=== PATIENT | female | born 1955 | race American Indian/Alaskan Native ===

== ENCOUNTER 2021-02-14 11:42 | Day surgery (SDC) | payer MEDICARE ==
[~2021-02-14 11:42] MED LIST: HEPARIN 10,000 UNITS/10 ML VIAL ONE; PROTAMINE SULFATE 50 MG/5 ML INJ ONE; SODIUM CHLORIDE 0.9% 250ML 250 ML ONE; THROMBIN (RECOMBINANT) 5,000 UNIT VIAL TP ONE
[2021-02-14] MEDS ORDERED: SODIUM CHLORIDE 0.9% 1000 ML 1,000 ML ONE (12:08)
[2021-02-14] MEDS ORDERED: SODIUM CHLORIDE 0.9% 1000 ML 1,000 ML IV SCH (14:00)
[2021-02-14] MEDS ORDERED: ceFAZolin/Water 2 GM/20 ML 2 GM/20 ML SYRINGE IV ONE (14:09)
[2021-02-14 14:10] LABS: Calcium 9.7 mg/dL (8.4-10.2)
[2021-02-14] MEDS ORDERED: propofoL 200 MG/20 ML VIAL IV ONE (14:21)
[2021-02-14] MEDS ORDERED: LIDOCAINE MPF (2%) 20 MG/1 ML VIAL 5 ML ONE (14:21)
[2021-02-14] MEDS ORDERED: fentaNYL 100 MCG/2 ML INJ ONE (14:21)
[2021-02-14] MEDS ORDERED: HEPARIN 5,000 UNIT/1 ML VIAL ONE (14:56)
[2021-02-14] MEDS ORDERED: ceFAZolin/STERILE WATER 2 GM/20 ML SYRINGE IV NR (15:00)
[2021-02-14] MEDS ORDERED: HEPARIN 10,000 UNIT/1 ML VIAL IV PRN (15:01)
--- NOTE | 2021-02-14 15:03 | Progress Note ---
Subjective Date of service: 02/14/21 Interval history: Right Arm AV Graft cancelled due to patient taking eliquis yesterday. Patient will be rescheduled at a later date. Objective - Constitutional Vitals: Vital Signs - 12hr 02/14/21 02/14/21 12:05 12:40 Temperature 98.6 F 98.6 F Pulse Rate 70 70 Respiratory 20 20 Rate Blood Pressure 165/100 165/100 O2 Sat by Pulse 99 99 Oximetry - Labs CBC & Chem 7: 02/14/21 12:35 Labs: Abnormal lab results 02/14/21 02/14/21 Range/Units 12:35 12:40 Potassium 3.5 L (3.6-5.0) mmol/L Chloride 95.7 L (98-107) mmol/L BUN 19 H (7-17) mg/dL Creatinine 7.6 H (0.6-1.2) mg/dL Glucose 203 H (65-100) mg/dL POC Glucose 179 H (70-105) mg/dL Medications & Allergies - Medications Allergies/Adverse Reactions: Allergies No Known Allergies Allergy (Verified 02/11/21 10:55) Home Medications: Home Medications Medication Instructions Recorded Confirmed Last Taken Type Apixaban [Eliquis] 2.5 mg PO BID 02/03/21 02/14/21 02/13/21 17:00 History AtorvaSTATin [Lipitor] 40 mg PO QHS 02/03/21 02/14/21 02/13/21 20:00 History calcitrioL [Rocaltrol] 0.5 mcg PO QDAY 02/03/21 02/03/21 Unknown History Clopidogrel [Plavix] 75 mg PO QDAY 02/11/21 02/14/21 02/13/21 09:00 History Insulin Glargine,Hum.rec.anlog 5 unit SQ HS 02/11/21 02/14/21 02/13/21 20:00 History [Lantus Solostar] Digoxin 0.125 mg PO DAILY 02/14/21 02/14/21 02/13/21 09:00 History Ferrous Sulfate 325 mg PO DAILY 02/14/21 02/14/21 02/13/21 09:00 History Gentamicin 0.1% Top Oint (Nf) 1 unit TRANSDERMA DAILY 02/14/21 02/14/21 02/13/21 09:00 History Hydrocort Buty 0.1% Lipo Cream 1 unit TRANSDERMA BID 02/14/21 02/14/21 02/13/21 17:00 History ISOSORBIDE MONOnitrate 30 mg PO DAILY 02/14/21 02/14/21 02/13/21 09:00 History Insulin Lispro 1 - 2 units SUB-Q QID 02/14/21 02/14/21 02/13/21 19:00 History Metoprolol Succinate 100 mg PO DAILY 02/14/21 02/14/21 02/14/21 08:00 History Midodrine 10 ng PO DAILY 02/14/21 02/14/21 02/13/21 07:00 History Pantoprazole 40 mg PO BID 02/14/21 02/14/21 02/13/21 17:00 History Ranexa 500 mg PO DAILY 02/14/21 02/14/21 02/13/21 09:00 History Sucralfate 1 tab PO QID 02/14/21 02/14/21 02/13/21 19:00 History Tradjenta 5 mg PO DAILY 02/14/21 02/14/21 02/13/21 09:00 History rOPINIRole 0.25 mg PO BID 02/14/21 02/14/21 02/13/21 17:00 History Active Medications: Generic Name Dose Route Start Last Admin Trade Name Freq PRN Reason Stop Dose Admin Cefazolin Sodium 2 gm 02/14/21 15:00 Cefazolin/Sterile Water 2 Gm/20 Ml Syringe IV 02/15/21 14:59 PREOP NR Sodium Chloride 1,000 mls @ 42 mls/hr 02/14/21 14:00 02/14/21 11:50 Nacl 0.9% 1000 Ml IV 42 mls/hr DIRECT RAMA Administration
[2021-02-14 15:07] LABS: Hematocrit 30.8 % (30.3-42.9); Mean Corpuscular HGB Conc 32 % (30-34); Mean Corpuscular Volume 95 fl (79-97); Platelet Count 248 K/mm3 (140-440); Red Blood Count 3.25 M/mm3 (3.65-5.03); Red Cell Distribution Width 19.7 % (13.2-15.2)
[2021-02-14 15:29] VITALS: BP 164/98
== END 2021-02-14 11:43 | disposition home or self-care (01) ==
LOC: OR 11:42
PROVIDERS: ATTEND Surgery Vascular Surgery
DX: I13.2 Hypertensive heart and chronic kidney disease with heart failure and with stage 5 chronic kidney disease, or end stage renal disease (principal); I50.9 Heart failure, unspecified; N18.6 End stage renal disease; Z53.8 Procedure and treatment not carried out for other reasons; E78.00 Pure hypercholesterolemia, unspecified; I48.91 Unspecified atrial fibrillation; I25.10 Atherosclerotic heart disease of native coronary artery without angina pectoris; Z99.2 Dependence on renal dialysis; Z79.899 Other long term (current) drug therapy; Z98.890 Other specified postprocedural states; Z79.4 Long term (current) use of insulin; Z20.822 Contact with and (suspected) exposure to COVID-19
CPT/HCPCS: 36415; 80048; 82962; 85027; J1644; J2704; J3010; J7030; J7050; U0003; J0690; J2720

== ENCOUNTER 2021-02-27 07:43 | Emergency (ER) | payer MEDICARE ==
--- NOTE | 2021-02-27 07:59 | Emergency Department Report ---
ED General Adult HPI - General Chief complaint: Rectal Pain Stated complaint: CONSTIPATION Time Seen by Provider: 02/27/21 07:47 Source: patient, EMS Mode of arrival: Stretcher Limitations: No Limitations - History of Present Illness Initial comments: Ms. Marquez is a 65-year-old female, intermediate patient. Patient had history of hypertension and congestive heart failure. Patient had hernia repair approximately 5 days ago at [facility]. Patient still have a wound VAC in place. Patient brought to the emergency room via EMS for evaluation of possible constipation. Patient stated that she was passing gas and feel like her diaper is full and when she asked the nursing staff they looked and said there is nothing in the diaper. Patient was sent for evaluation of constipation. Patient stated that as soon as up with her in the EMS she had a bowel movement. Upon arrival to the ER patient diaper is full with the stool. Patient currently denying any abdominal pain, nausea or vomiting. She also denied any fever or chills. No chest pain or shortness of breath. - Related Data Home Medications Medication Instructions Recorded Confirmed Last Taken Apixaban [Eliquis] 2.5 mg PO BID 02/03/21 02/14/21 02/13/21 17:00 AtorvaSTATin [Lipitor] 40 mg PO QHS 02/03/21 02/14/21 02/13/21 20:00 calcitrioL [Rocaltrol] 0.5 mcg PO QDAY 02/03/21 02/03/21 Unknown Clopidogrel [Plavix] 75 mg PO QDAY 02/11/21 02/14/21 02/13/21 09:00 Insulin Glargine,Hum.rec.anlog 5 unit SQ HS 02/11/21 02/14/21 02/13/21 20:00 [Lantus Solostar] Digoxin 0.125 mg PO DAILY 02/14/21 02/14/21 02/13/21 09:00 Ferrous Sulfate 325 mg PO DAILY 02/14/21 02/14/21 02/13/21 09:00 Gentamicin 0.1% Top Oint (Nf) 1 unit TRANSDERMA DAILY 02/14/21 02/14/21 02/13/21 09:00 Hydrocort Buty 0.1% Lipo Cream 1 unit TRANSDERMA BID 02/14/21 02/14/21 02/13/21 17:00 ISOSORBIDE MONOnitrate 30 mg PO DAILY 02/14/21 02/14/21 02/13/21 09:00 Insulin Lispro 1 - 2 units SUB-Q QID 02/14/21 02/14/21 02/13/21 19:00 Metoprolol Succinate 100 mg PO DAILY 02/14/21 02/14/21 02/14/21 08:00 Midodrine 10 ng PO DAILY 02/14/21 02/14/21 02/13/21 07:00 Pantoprazole 40 mg PO BID 02/14/21 02/14/21 02/13/21 17:00 Ranexa 500 mg PO DAILY 02/14/21 02/14/21 02/13/21 09:00 Sucralfate 1 tab PO QID 02/14/21 02/14/21 02/13/21 19:00 Tradjenta 5 mg PO DAILY 02/14/21 02/14/21 02/13/21 09:00 rOPINIRole 0.25 mg PO BID 02/14/21 02/14/21 02/13/21 17:00 Previous Rx's Medication Instructions Recorded Last Taken Type Docusate Sodium [Colace] 100 mg PO BID PRN #60 capsule 02/27/21 Unknown Rx Sodium Phosphate,Fleming-Dibasic 118 ml RC ONCE #1 enema 02/27/21 Unknown Rx [Fleet Enema] Allergies Allergy/AdvReac Type Severity Reaction Status Date / Time No Known Allergies Allergy Verified 02/11/21 10:55 ED Review of Systems ROS: Stated complaint: CONSTIPATION Other details as noted in HPI Comment: All other systems reviewed and negative Constitutional: denies: chills, fever Respiratory: denies: cough, shortness of breath Cardiovascular: denies: chest pain Gastrointestinal: constipation. denies: abdominal pain, nausea, vomiting, diarrhea, hematemesis, melena, hematochezia ED Past Medical Hx - Past Medical History Previous Medical History?: Yes Hx Hypertension: Yes Hx Congestive Heart Failure: Yes Hx Diabetes: Yes Hx Pulmonary Embolism: Yes (HX OF BLOOD CLOT IN LUNG) Hx HIV: No - Surgical History Past Surgical History?: Yes Hx Coronary Stent: Yes Hx Open Heart Surgery: No - Social History Smoking Status: Never Smoker - Medications Home Medications: Home Medications Medication Instructions Recorded Confirmed Last Taken Type Apixaban [Eliquis] 2.5 mg PO BID 02/03/21 02/14/21 02/13/21 17:00 History AtorvaSTATin [Lipitor] 40 mg PO QHS 02/03/21 02/14/21 02/13/21 20:00 History calcitrioL [Rocaltrol] 0.5 mcg PO QDAY 02/03/21 02/03/21 Unknown History Clopidogrel [Plavix] 75 mg PO QDAY 02/11/21 02/14/21 02/13/21 09:00 History Insulin Glargine,Hum.rec.anlog 5 unit SQ HS 02/11/21 02/14/21 02/13/21 20:00 History [Lantus Solostar] Digoxin 0.125 mg PO DAILY 02/14/21 02/14/21 02/13/21 09:00 History Ferrous Sulfate 325 mg PO DAILY 02/14/21 02/14/21 02/13/21 09:00 History Gentamicin 0.1% Top Oint (Nf) 1 unit TRANSDERMA DAILY 02/14/21 02/14/21 02/13/21 09:00 History Hydrocort Buty 0.1% Lipo Cream 1 unit TRANSDERMA BID 02/14/21 02/14/21 02/13/21 17:00 History ISOSORBIDE MONOnitrate 30 mg PO DAILY 02/14/21 02/14/21 02/13/21 09:00 History Insulin Lispro 1 - 2 units SUB-Q QID 02/14/21 02/14/21 02/13/21 19:00 History Metoprolol Succinate 100 mg PO DAILY 02/14/21 02/14/21 02/14/21 08:00 History Midodrine 10 ng PO DAILY 02/14/21 02/14/21 02/13/21 07:00 History Pantoprazole 40 mg PO BID 02/14/21 02/14/21 02/13/21 17:00 History Ranexa 500 mg PO DAILY 02/14/21 02/14/21 02/13/21 09:00 History Sucralfate 1 tab PO QID 02/14/21 02/14/21 02/13/21 19:00 History Tradjenta 5 mg PO DAILY 02/14/21 02/14/21 02/13/21 09:00 History rOPINIRole 0.25 mg PO BID 02/14/21 02/14/21 02/13/21 17:00 History Docusate Sodium [Colace] 100 mg PO BID PRN #60 capsule 02/27/21 Unknown Rx Sodium Phosphate,Fleming-Dibasic 118 ml RC ONCE #1 enema 02/27/21 Unknown Rx [Fleet Enema] ED Physical Exam - General Limitations: No Limitations General appearance: alert, in no apparent distress - Head Head exam: Present: atraumatic, normocephalic, normal inspection - Eye Eye exam: Present: normal appearance, PERRL - ENT ENT exam: Present: normal exam, normal orophraynx, mucous membranes moist - Neck Neck exam: Present: normal inspection, full ROM. Absent: tenderness, meningismus - Respiratory Respiratory exam: Present: normal lung sounds bilaterally - Cardiovascular Cardiovascular Exam: Present: regular rate, normal rhythm, normal heart sounds - GI/Abdominal GI/Abdominal exam: Present: soft, normal bowel sounds, other (Wound VAC in place.). Absent: distended, tenderness, guarding, rebound, rigid, mass, bruit, pulsatile mass, hernia - Extremities Exam Extremities exam: Present: normal inspection, full ROM - Back Exam Back exam: Present: normal inspection, full ROM. Absent: CVA tenderness (R), CVA tenderness (L) - Neurological Exam Neurological exam: Present: alert, oriented X3, CN II-XII intact - Psychiatric Psychiatric exam: Present: normal mood - Skin Skin exam: Present: warm, intact, normal color ED Course Vital Signs 02/27/21 02/27/21 07:55 08:06 Temperature 97.9 F Pulse Rate 83 Respiratory 16 Rate O2 Sat by Pulse 98 98 Oximetry ED Medical Decision Making - Lab Data Result diagrams: 02/27/21 09:10 02/27/21 09:10 - Radiology Data Radiology results: report reviewed - Medical Decision Making Ms. Marquez is a 65-year-old female, intermediate patient. Patient had history of hypertension and congestive heart failure. Patient had hernia repair approximately 5 days ago at [facility]. Patient still have a wound VAC in place. Patient brought to the emergency room via EMS for evaluation of possible constipation. Patient stated that she was passing gas and feel like her diaper is full and when she asked the nursing staff they looked and said there is nothing in the diaper. Patient was sent for evaluation of constipation. Patient stated that as soon as up with her in the EMS she had a bowel movement. Upon arrival to the ER patient diaper is full with the stool. Patient currently denying any abdominal pain, nausea or vomiting. She also denied any fever or chills. No chest pain or shortness of breath. Patient remained stable in the ER with a stable vital sign. Labs reviewed and is unremarkable except for leukocytosis and her chronic kidney disease. CT abdomen and pelvis showed constipation. Also possible colitis. Patient given a prescription for Fleet enema and Colace and ciprofloxacin. Patient advised to follow-up with her primary care physician and surgeon in the next 2 to 3 days and to return to the ER if she develop any new symptoms. Critical care attestation.: If time is entered above; I have spent that time in minutes in the direct care o f this critically ill patient, excluding procedure time. ED Disposition Clinical Impression: Constipation, Colitis Disposition: 01 HOME / SELF CARE / HOMELESS Is pt being admited?: No Condition: Stable Instructions: Constipation, Adult, Colitis Prescriptions: Docusate Sodium [Colace] 100 mg PO BID PRN #60 capsule PRN Reason: Constipation Sodium Phosphate,Fleming-Dibasic [Fleet Enema] 118 ml RC ONCE #1 enema Referrals: PRIMARY CARE, [Primary Care Provider] - 3-5 Days
--- NOTE | 2021-02-27 09:07 | XRay Report ---
ABDOMEN 3 VIEW(S) INDICATION / CLINICAL INFORMATION: Abdominal pain. COMPARISON: None available. FINDINGS: TUBES / LINES: None. BOWEL GAS PATTERN: There is a [id number] amount of stool throughout the colon. There is no evid ence of bowel obstruction or mass effect. FREE AIR / EXTRALUMINAL GAS: None seen. ADDITIONAL FINDINGS: There are atherosclerotic calcifications involving the splenic and iliac arterie s without visible aneurysm. Several phleboliths are present in the lower pelvis bilaterally. There is moderate spondylosis. CHEST: There is a right jugular Vas-Cath with the tip overlying the upper cavoatrial junction. The he art size is normal and the lungs are clear. IMPRESSION: No acute abnormality is identified. Signer Name: Roland Prado MD Signed: 02/27/2021 9:02 AM Workstation Name: [id number]
[2021-02-27 09:49] LABS: Basophils # (Auto) 0.1 K/mm3 (0.0-0.1); Eosinophils # (Auto) 0.1 K/mm3 (0.0-0.4); Hematocrit 24.7 % (30.3-42.9); Hemoglobin 7.4 gm/dl (10.1-14.3); Lymphocytes # (Auto) 0.7 K/mm3 (1.2-5.4); Lymphocytes % (Auto) 5.2 % (13.4-35.0); Mean Corpuscular HGB Conc 30 % (30-34); Mean Corpuscular Volume 94 fl (79-97); Monocytes # (Auto) 1.8 K/mm3 (0.0-0.8); Monocytes % (Auto) 13.2 % (0.0-7.3); Platelet Count 379 K/mm3 (140-440); Red Blood Count 2.62 M/mm3 (3.65-5.03); Red Cell Distribution Width 19.6 % (13.2-15.2)
[2021-02-27 09:57] LABS: Calcium 9.1 mg/dL (8.4-10.2)
--- NOTE | 2021-02-27 11:32 | Cat Scan Report ---
CT OF THE ABDOMEN AND PELVIS WITHOUT CONTRAST INDICATION / CLINICAL INFORMATION: Abdominal pain. TECHNIQUE: All CT scans at this location are performed using CT dose reduction for ALARA by means of automated exposure control. COMPARISON: None available. FINDINGS: ABDOMEN: There are moderately severe atherosclerotic calcifications without aneurysm. There are few s mall calcified granulomata in the spleen. Mild increased density of the gallbladder may be related to vicarious excretion of contrast. The liver, bile ducts, pancreas and left kidney are normal. There i s a 1.5 cm simple cyst-appearing lesion in the mid to upper right kidney. There is mild benign-appear ing low density hyperplasia of the left adrenal gland. The right adrenal gland is normal. There is no evidence of bowel obstruction, wall thickening or free air. No adenopathy is present. The lung bases are clear. PELVIS: There is a moderate amount of high density stool in a mildly distended rectum. Mild presacral edema is present. No definite associated bowel wall thickening is identified. There is contrast in the urinary bladder. The distal ureters are normal. The uterus is surgically abs ent. There is no evidence of adnexal mass or free fluid. A normal appendix is present and there is no evidence of diverticulitis. There is postsurgical change/scarring in the right periumbilical fat. Th ere is a tiny fat-containing periumbilical hernia. A few bubbles of gas in this region may be related to recent surgery. No drainable fluid collection is present. There is mild to moderate spondylosis. IMPRESSION: 1. Moderate amount of stool in a distended rectum may be related to fecal impaction. Mild presacral e spencer is nonspecific but could be related to stercoral colitis. 2. Postsurgical changes in the periumbilical region. Signer Name: Roland Prado MD Signed: 02/27/2021 11:28 AM Workstation Name: [id number]
[2021-02-27 18:31] VITALS: BP 132/66
== END 2021-02-27 18:31 | disposition home or self-care (01) ==
LOC: ED 07:43
DX: K59.00 Constipation, unspecified (principal); K52.9 Noninfective gastroenteritis and colitis, unspecified; I11.0 Hypertensive heart disease with heart failure; I50.9 Heart failure, unspecified; E11.9 Type 2 diabetes mellitus without complications; Z79.01 Long term (current) use of anticoagulants; Z79.899 Other long term (current) drug therapy; Z79.4 Long term (current) use of insulin
CPT/HCPCS: 36415; 74022; 74176; 80048; 85025; 99285

== ENCOUNTER 2021-05-18 09:58 | Day surgery (SDC) | payer MEDICARE ==
[~2021-05-18 09:58] MED LIST changes: -PROTAMINE SULFATE 50 MG/5 ML INJ ONE
[2021-05-18] MEDS ORDERED: SODIUM CHLORIDE 0.9% 1000 ML 1,000 ML ONE (10:38)
[2021-05-18] MEDS ORDERED: INSULIN LISPRO 100 UNIT/ML SUB-Q NR ×2 (11:21→12:00)
[2021-05-18] MEDS ORDERED: HYDROmorphone 1 MG/1 ML INJ IV PRN ×2 (11:23)
--- NOTE | 2021-05-18 11:24 | Anesthesia Day of Surgery ---
Anesthesia Day of Surgery - Day of Surgery Patient Examined: Yes Patient H&P Reviewed: Yes Patient is NPO: Yes Beta Blockers: Yes
--- NOTE | 2021-05-18 11:28 | Anesthesia Consultation ---
Anesthesia Consult and Med Hx Date of service: 05/18/21 - Airway Anesthetic Teeth Evaluation: Caps (Missing) ROM Head & Neck: Adequate Mental/Hyoid Distance: Adequate Mallampati Class: Class II Intubation Access Assessment: Good - Pre-Operative Health Status ASA Pre-Surgery Classification: ASA4 Proposed Anesthetic Plan: General (Patient request) - Pulmonary Hx Smoking: No - Cardiovascular System Hx Hypertension: Yes (Dx 8 YEARS AGO) Hx Coronary Artery Disease: Yes (CHF) Hx Percutaneous Transluminal Coronary Angioplasty (PTCA): Yes (Stent 6 months ago) Hx Cardia Arrhythmia: Yes - Central Nervous System CVA: Yes (1 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
[2021-05-18] MEDS ORDERED: ONDANSETRON 4 MG/2 ML INJ IV PRN (11:30)
[2021-05-18] MEDS ORDERED: SODIUM CHLORIDE 0.9% 1000 ML 1,000 ML IV SCH (11:30)
[2021-05-18] MEDS ORDERED: PROTAMINE SULFATE 50 MG/5 ML INJ ONE (11:36)
[2021-05-18 11:42] LABS: Hematocrit 37.5 % (30.3-42.9); Hemoglobin 11.7 gm/dl (10.1-14.3)
[2021-05-18] MEDS ORDERED: ceFAZolin/Water 2 GM/20 ML 2 GM/20 ML SYRINGE IV ONE ×2 (11:59→12:00)
[2021-05-18] MEDS ORDERED: METOPROLOL SUCCINATE XL 100 MG TAB PO SCH (12:00)
[2021-05-18] MEDS ORDERED: LIDOCAINE MPF (2%) 20 MG/1 ML VIAL 5 ML ONE (12:08)
[2021-05-18] MEDS ORDERED: propofoL 200 MG/20 ML VIAL IV ONE (12:09)
[2021-05-18] MEDS ORDERED: fentaNYL 100 MCG/2 ML INJ ONE (12:09)
[2021-05-18] MEDS ORDERED: ONDANSETRON 4 MG/2 ML INJ ONE (12:11)
[2021-05-18] MEDS ORDERED: HEPARIN 10,000 UNITS/10 ML VIAL IR ONE (13:34)
[2021-05-18] MEDS ORDERED: SODIUM CHLORIDE 0.9% 250 ML IVPB IR ONE ×2 (13:34→14:13)
[2021-05-18] MEDS ORDERED: SODIUM CHLORIDE 0.9% IRR 1,500 ML BOTTLE IR ONE ×2 (13:35)
[2021-05-18] MEDS ORDERED: rifAMPin 600 MG VIAL ONE (13:44)
[2021-05-18] MEDS ORDERED: SODIUM CHLORIDE 0.9% 250ML 250 ML ONE (13:44)
[2021-05-18] MEDS ORDERED: HYDROmorphone 1 MG/1 ML INJ ONE (14:07)
[2021-05-18] MEDS ORDERED: rifAMPin 600 MG VIAL IV ONE (14:14)
[2021-05-18] MEDS ORDERED: ePHEDrine SULFATE 50 MG/1 ML INJ ONE (14:28)
[2021-05-18] MEDS ORDERED: PROTAMINE SULFATE 50 MG/5 ML INJ IV ONE (15:09)
[2021-05-18] MEDS ORDERED: PHENYLEPHRINE/NS 1,000 MCG/10 ML SYRINGE (OR USE) IV ONE (15:23)
[2021-05-18] MEDS ORDERED: PHENYLEPHRINE 10 MG/1 ML INJ SDV ONE (15:23)
[2021-05-18] MEDS ORDERED: HEPARIN 10,000 UNITS/10 ML VIAL ONE (15:24)
--- NOTE | 2021-05-18 15:40 | Post Operative Note ---
Date of procedure: 05/18/21 Pre-op diagnosis: ESRD Post-op diagnosis: same Procedure: Right Arm AV Graft Insertion Anesthesia: GETA Surgeon: CLAY LOMELI Estimated blood loss: other (25ml) Pathology: none Condition: stable Disposition: PACU
[2021-05-18] MEDS ORDERED: oxyCODONE /ACETAMINOPHEN 5-325MG TAB PO PRN (15:42)
--- NOTE | 2021-05-18 15:42 | Short Stay Summary ---
Short Stay Documentation Date of service: 05/18/21 - History H&P: dictated Past Medical History: diabetes, ESRD, hypertension - Allergies and Medications Current Medications: Allergies morphine Adverse Reaction (Verified 05/18/21 11:19) Nausea Home Medications Medication Instructions Recorded Confirmed Last Taken Type Apixaban [Eliquis] 5 mg PO BID 02/03/21 05/12/21 02/13/21 17:00 History AtorvaSTATin [Lipitor] 40 mg PO QHS 02/03/21 05/12/21 02/13/21 20:00 History Ferrous Sulfate 325 mg PO DAILY 02/14/21 05/12/21 02/13/21 09:00 History ISOSORBIDE MONOnitrate 60 mg PO DAILY 02/14/21 05/12/21 02/13/21 09:00 History Metoprolol Succinate 100 mg PO BID 02/14/21 05/12/21 02/14/21 08:00 History Ranexa 500 mg PO DAILY 02/14/21 05/12/21 02/13/21 09:00 History rOPINIRole 0.25 mg PO BID PRN 02/14/21 05/12/21 02/13/21 17:00 History Calcium Acetate [Phoslo] 2,001 mg PO TID 05/12/21 05/12/21 Unknown History Ferric Citrate (Nf) [Auryxia] 210 mg PO TIDAC 05/12/21 05/12/21 Unknown History Gabapentin [Neurontin] 100 mg PO HS 05/12/21 05/12/21 Unknown History Insulin Lispro [Humalog] 1 unit SQ PRN PRN 05/12/21 05/12/21 Unknown History Nitroglycerin [Nitrostat] 0.4 mg SL Q5M PRN 05/12/21 05/12/21 Unknown History Active Medications Hydromorphone HCl (Hydromorphone 1 Mg/1 Ml Inj) 0.25 mg IV Q10MIN PRN PRN Reason: Pain, Moderate (4-6) Stop: 05/18/21 20:00 Hydromorphone HCl (Hydromorphone 1 Mg/1 Ml Inj) 0.5 mg IV Q10MIN PRN PRN Reason: Pain , Severe (7-10) Stop: 05/18/21 20:00 Sodium Chloride (Nacl 0.9% 1000 Ml) 1,000 mls @ 42 mls/hr IV DIRECT RAMA Metoprolol Succinate (Metoprolol Succinate Xl 100 Mg Tab) 100 mg PO QDAY RAMA - Physical exam General appearance: no acute distress Lungs: Normal air movement Heart: Regular rate Extremities: no ischemia - Hospital course Hospital course: the patient was taken to the operating room and had a right arm av graft insertion performed. please refer to the operative note concerning details of the procedure. the patient tolerated the procedure well and was discharged home in stable condition. - Disposition Condition at discharge: Stable Disposition: 01 HOME / SELF CARE / HOMELESS Short Stay Discharge Plan Follow up with: JOSE GARCÍA MD [Primary Care Provider] - 7 Days
[2021-05-18] MEDS ORDERED: HEPARIN 10,000 UNIT/1 ML VIAL IV PRN (15:45)
--- NOTE | 2021-05-18 16:30 | Operative Report ---
DATE OF SURGERY: 05/18/2021 STAFF SURGEON: Herrera Jaeger MD PREOPERATIVE DIAGNOSIS: End-stage renal disease. POSTOPERATIVE DIAGNOSIS: End-stage renal disease. PROCEDURE PERFORMED: Right arm AV graft insertion. COMPLICATIONS: None. ESTIMATED BLOOD LOSS: 25 mL. ANESTHESIA: General. INDICATIONS FOR PROCEDURE: This is a 65-year-old female with end-stage renal disease, on hemodialysis via right IJ PermCath, in need of upper extremity access. The patient had a failed right upper arm AV fistula creation and did not demonstrate any other suitable veins for a fistula creation. Therefore, the patient was slated to undergo AV graft insertion. The patient was explained the risks, benefits and alternatives of procedure, expressed understanding and wished to proceed. DESCRIPTION OF PROCEDURE: After the appropriate consent was obtained, the patient was brought back to the operating room and placed on the operating table in supine position with the right arm extended. The patient was given appropriate medication for general anesthesia, had LMA placed without difficulty. The right arm was prepped and draped in the usual sterile fashion with ChloraPrep. Appropriate preoperative antibiotics were administered. Appropriate timeout was performed indicating correct patient, procedure, and site of procedure. We then began the operation by making a longitudinal incision near the antecubital fossa. This was carried through the subcutaneous tissues with combination of blunt dissection and electrocautery. Dissection was continued through the bicep aponeurosis, which allowed us to expose the brachial artery. It was found to be suitable for arterial inflow and was mobilized for appropriate distance, both proximally and distally. We then proceeded to make a longitudinal incision near the axilla. This was carried through the subcutaneous tissues with combination of blunt dissection and electrocautery. We then continued our dissection through the subcutaneous tissues with combination of blunt dissection and electrocautery. Dissection was continued through the fascia overlying the axillary neurovascular bundle. Axillary vein was identified and found to be suitable for venous outflow. It was mobilized for appropriate distance, both proximally and distally. We then created a subcutaneous tunnel between the 2 incision sites, bringing through a 5 mm Artegraft. The patient was then given 5000 units of unfractionated heparin. After appropriate time had elapsed, we proceeded to place vascular clamps on the brachial artery, both proximally and distally. A longitudinal arteriotomy was made with 11 blade, extended with Butts scissors. End-to-side anastomosis was performed with a running 6-0 Prolene suture. Once complete, flow was established through the graft, had a nice pulsatile flow. We then cut the graft to appropriate length and spatulated. We then proceeded to place vascular clamps on the axillary vein, both proximally and distally. A longitudinal venotomy was made with an 11 blade, extended with Butts scissors. We then proceeded to perform an end-to-side anastomosis with a running 5-0 Prolene suture. Once complete, flow was established through the graft. We had a nice palpable thrill. We then looked to obtain hemostasis along our suture lines, was obtained with hemostatic agents. Once we were satisfied with hemostasis, we then proceeded to close both wounds with deep subcutaneous layer with interrupted 3-0 PDS. Skin was approximated with betty. Appropriate dressing was placed. The patient tolerated the procedure well, emerged from the general anesthesia, had LMA removed and was sent to recovery in stable condition. All sponge and needle counts were correct at completion of the operation. TID: [id number] RECEIPT: [id number] ROMEO/LEONARDO
[2021-05-18 17:14] VITALS: BP 112/73
--- NOTE | 2021-05-18 17:42 | Post Anesthesia Evaluation ---
- Post Anesthesia Evaluation Patient Participated: Yes Airway Patent: Yes Stable Respiratory Function: Yes Nausea/Vomiting: No Temp > 96.8F: Yes Pain Manageable: Yes Adequeate Hydration: Yes Anesthesia Complications: No Block Receding Appropriately: Not Applicable Patient on Ventilator: No
== END 2021-05-18 18:30 | disposition home or self-care (01) ==
LOC: OR 09:58
PROVIDERS: ATTEND Surgery Vascular Surgery
DX: I13.2 Hypertensive heart and chronic kidney disease with heart failure and with stage 5 chronic kidney disease, or end stage renal disease (principal); N18.6 End stage renal disease; I50.9 Heart failure, unspecified; Z99.2 Dependence on renal dialysis; Z20.822 Contact with and (suspected) exposure to COVID-19; K21.9 Gastro-esophageal reflux disease without esophagitis; E66.9 Obesity, unspecified; Z86.73 Personal history of transient ischemic attack (TIA), and cerebral infarction without residual deficits; Z79.899 Other long term (current) drug therapy; Z98.890 Other specified postprocedural states
CPT/HCPCS: 36415; 36830; 80048; 82962; 85014; 85018; C1768; J0690; J1170; J1644; J2370; J2405; J2704; J2720; J3010; J3490; J7030; J7050; U0003; J7120; Q0162